=== PATIENT | male | born 1965 | race African-American/Black ===

== ENCOUNTER 2022-10-30 23:34 | Inpatient (IN) | payer MEDICARE, OTHER ==
[~2022-10-30] VITALS: Ht 172.7 cm; Wt 105.9 kg
[~2022-10-30 23:34] MED LIST: ANUSOL-HC25 MG RE; CIPRO500 MG OR; DARVOCET-N 100100 MG OR; LORTAB 5 OR; LORTAB 7.5 OR; MEDDOSEPAK OR; PREVACID30 M2 OR; REGLAN10 MG OR
[2022-10-30 23:54] VITALS: BP 138/97
[2022-10-31] VITALS (29 sets, daily range): BP systolic 98–168; BP diastolic 59–107
--- NOTE | 2022-10-31 00:30 | NUR ---
IV STARTED/LABS DRAWN AND PT MEDICATED.
[2022-10-31 00:45] LABS: BASO% 0.3 % (0-3); EOS% 0.9 % (0-8); HEMATOCRIT 42.8 % (39.0-50.0); HEMOGLOBIN 13.8 g/dl (14.0-18.0); IMMATURE GRANULOCYTES 0.6 % (0.0-5.0); LYMPH% 29.6 % (15-41); MEAN CELL VOLUME 88.8 fL CALC (80.0-100.0); MEAN CORPUSCULAR HGB 28.6 pG CALC (26.0-32.0); MEAN CORPUSCULAR HGB CONC 32.2 g/dL CAL (32.0-36.0); MONO% 8.2 % (2-13); NEUT# 4.11 thou/uL (1.82-7.42); NEUT% 60.4 % (42-76); RED BLOOD COUNT 4.82 mill/uL (4.70-6.10); RED CELL DISTRI WIDTH 13.1 % (11.5-15.5)
[2022-10-31 01:03] LABS: ALBUMIN 4.5 g/dL (3.2-5.0); ALKALINE PHOSPHATASE 63 u/l (38-126); ANION GAP 13 (6-22 (CALC)); BUN 9 mg/dL (9-20); BUN/CREATININE RATIO 8 (12-20 (CALC)); CARBON DIOXIDE 25 mmol/l (22-30); CHLORIDE 108 mmol/l (95-108); CREATININE 1.1 mg/dL (0.7-1.3); GFR FOR AFR.AMER. > 60 ML/MIN (>=60 (CALC)); GFR OTHER RACES > 60 ML/MIN (>=60 (CALC)); LIPASE 93 u/l (23-300); POTASSIUM 3.8 mmol/l (3.5-5.1); SGOT/AST 32 u/l (17-59); SODIUM 142 mmol/l (137-146); TOTAL PROTEIN 7.7 g/dL (6.3-8.2)
[2022-10-31 01:07] LABS: BILIRUBIN, TOTAL 0.8 mg/dL (0.2-1.3)
--- NOTE | 2022-10-31 04:20 | NUR ---
AT BEDSIDE TO DISCUSS RESULTS OF TESTS AND PLAN TO ADMIT AND POC.
--- NOTE | 2022-10-31 05:15 | NUR ---
#16 NG INSERTED AFTER INSERTING UROJET IN NASAL CAVITY. INSERTED IN RIGHT NARES. CONNECTED TO LIS. DRAINING CLEAR FLUID. SECURED TO NOSE. TOLERATED WELL BY PT. XRAY PENDING.
--- NOTE | 2022-10-31 06:58 | NUR ---
PT RESTING. AWAITING ADMIT BED. GIVEN PERMISSION TO SPEAK WITH SISTER, BRANDEE RINCON. SISTER UPDATED. REAL BED CALLED FOR WHILE WAITING FOR ROOM.
--- NOTE | 2022-10-31 07:20 | NUR ---
REPORT TO NIK.
--- NOTE | 2022-10-31 08:18 | NUR ---
PT IS HAVING 8/10 PAIN. CALLED DIAZ FOR PAIN MEDICATIONS.
--- NOTE | 2022-10-31 09:00 | NUR ---
DR PERALES AT THE BEDSIDE FOR A CONSULT
--- NOTE | 2022-10-31 11:30 | NUR ---
PT RESTING IN ROOM. NG TO LIS. NS INFUSING
--- NOTE | 2022-10-31 12:14 | NUR ---
CALL FROM DR KELLY, ORDER TO DISCONTINUE N/G TUBE FROM PATIENT, ORDER FOR REGULAR DIET. PATIENT NOTIFIED P.O. FLUIDIS GIVEN
--- NOTE | 2022-10-31 13:39 | NUR ---
Reassessment of patient completed. No distress noted.
--- NOTE | 2022-10-31 14:30 | NUR ---
REPORT TO SPREADING MACHINE OPERATOR. PT ALERT AND OX4 DENIES PAIN. PT IS NOW FEELING"HUNGRY AND THRISTY". LUNCH TRAY WAS ORDERED FOR HIM. PT WHEELED UP TO ICU
--- NOTE | 2022-10-31 14:45 | NUR ---
patient transferred to icu bed 1 via wc. belongings sent with patient.
--- NOTE | 2022-10-31 14:45 | NUR ---
REPORT RECIEVED FROM ED RN. PT HERE WITH COMPLAINTS OF N/V AND ABDOMINAL PAIN. PT ADMITTED FOR POSSIBLE ILEUS. PT BROUGHT TO ICU BY WHEELCHAIR MED SURG OVERFLOW. PT IS A/O. AMBULATORY. PT DENIES ABDOMINAL PAIN OR NAUSEA AT THIS TIME. LUNGS CLEAR/DIMINISHED. PT IS ON RA. NO COUGH OR SOB. HEART RHYTHM REGULAR. PT IS NSR/SB. BOWEL SOUNDS ACTIVE. PT DENIES ABDOMINAL TENDERNESS. PULSES STRONG ALL EXTREMETIES. SKIN W/D/I. IV ACCESS 20G LAC. CALL LIGHT WITHIN REACH. VSS. FAMILY AT BEDSIDE.
--- NOTE | 2022-10-31 18:00 | NUR ---
PT GIVEN DINNER TRAY. PT UP TO BATHROOM; PT REPORTS LOOSE BOWEL MOVEMENT. NO OTHER COMPLAINTS/CONCERNS. PT DENIES ABDOMEINAL PAIN. CALL LIGHT IN REACH. VSS.
--- NOTE | 2022-10-31 19:00 | NUR ---
REPORT RECEIVED FROM OFF GOING NURSE.
--- NOTE | 2022-10-31 20:00 | NUR ---
PATIENT NOTED LYING IN BED RESTING COMFORTABLY WITH NO ACUTE DISTRESS NOTED. HE DENIES ANY PAIN OR DISCOMFORT. ASSESSMENT COMPLETE (SEE INTERVENTIONS). VSS. BED LOCKED, IN LOW POSITION. CALL LIGHT WITHIN REACH.
[2022-11-01] VITALS (11 sets, daily range): BP systolic 103–134; BP diastolic 59–75
--- NOTE | 2022-11-01 01:38 | NUR ---
PATIENT UP, HE CALLED FAMILY TO BRING UP FOOD FOR HIM. FAMILY THEN BROUGHT HIM 2 SANDWICHES AND A LARGE SWEET TEA.
--- NOTE | 2022-11-01 04:00 | NUR ---
PATIENT SLEEPING WITH NO ACUTE DISTRESS NOTED. WILL CONTINUE TO MONITOR.
--- NOTE | 2022-11-01 07:25 | NUR ---
pt awake in bed; no apparent distress noted; pt offers no complaints; assessment completed at this time; pt alert and oriented; denies pain; no n/v noted; resp even and unlabored; lungs clear; skin color wnl; ra; hr reg; strong pulses; no edema noted; sb on monitor; abd soft with bs present; no bm noted per policy writer sales, pt reports loose stools during the night; no urine to inspect at this time; #20 patent to lac with ivf infusing without complication; no redness or edema noted at site; plan of care/ meds explained; call light within reach; will continue to monitor
--- NOTE | 2022-11-01 08:14 | NUR ---
awake sitting at the side of the bed; offers no complaints; no distress noted; call light within reach; will continue to monitor
--- NOTE | 2022-11-01 10:17 | NUR ---
awake in bed; offers no complaints; no apparent distress noted; sb on monitor; iv intact and patent; call light within reach; will continue to monitor
--- NOTE | 2022-11-01 10:41 | NUR ---
Dr Vicente present at bedside to assess pt and discuss plan of care
--- NOTE | 2022-11-01 11:45 | NUR ---
Discharge instructions given. Patient verbalizes understanding of same. Discharged in stable condition via Wheelchair to Home with family. All belongings sent with pt.
== END 2022-11-01 11:55 | disposition home or self-care (01) | DRG 390 ==
LOC: ED 23:34 → ED-I 10-31 04:18 → ED 10-31 04:38 → ED-I 10-31 04:39 → ICU 10-31 14:36
PROVIDERS: Internal Medicine; ADMIT Surgery; ATTEND Surgery
DX: K56.7 Ileus, unspecified (principal); Z87.828 Personal history of other (healed) physical injury and trauma
CPT/HCPCS: Q9967